=== PATIENT | male | born 1965 | race Caucasian/White ===

== ENCOUNTER → 2016-04-28 | Outpatient (CLI) | payer BC ==
--- NOTE | 2016-04-28 18:09 | PN ---
DATE OF SERVICE: 04/28/2016 A 50-year-old gentleman who has been followed in the sleep center for treatment of obstructive sleep apnea/hypopnea syndrome in extremely severe range. Apnea-hypopnea index 83.9, oxygen desaturation to 72%. He is on treatment with CPAP with a pressure of 8 cm of water. Last titration done in 2013. Since that time, patient's weight came up to 255 and then came down now to 247. I checked patient's CPAP unit. Usage is 29 out of 30 nights and 23 out of 30 nights for more than 4 hours. Average usage is 5.1 hours per night. Leak is 11 L/min, which is acceptable. Apnea-hypopnea index for the last month is 0.9, which is normal range. Patient denied any significant excessive daytime sleepiness. [place] Sleepiness Scale is 0. In 2014, patient went through maintenance of wakefulness test and passed this test. MEDICATIONS: 1. Atorvastatin. 2. Moexipril. PHYSICAL EXAM: GENERAL: A 50-year-old gentleman without distress. VITAL SIGNS: BP 150/92, HR 78, RR 16. Height 5 feet 10 inches. Weight 247. BMI 35.4. Neck 20 inches in circumference. Temp is 98.0. Oxygen saturation at room air 96%. OROPHARYNX: Low position of soft palate. Wide pillars. Significant restriction of nasal breathing bilaterally, probably nasal septum deviation. NECK: Supple. No JVD. Thyroid is not palpable. LUNGS: Clear to percussion and to auscultation. Good air exchange. No wheezing or rhonchi. HEART: S1, S2 regular. No murmurs, gallops or rubs. ABDOMEN: Soft and nontender. Bowel sounds are present. No organomegaly appreciated. EXTREMITIES: No clubbing or cyanosis. PANEL [employer] WORK[employer]: Awake, alert, and oriented x3. Cranial nerves 2 to 7 intact. There is no fasciculation or atrophy noted. No focal deficits observed. IMPRESSION: 1. Severe obstructive sleep apnea-hypopnea syndrome on control with continuous positive airway pressure at the pressure of 8 cm of water. Patient demonstrated acceptable compliance with treatment. 2. No excessive daytime sleepiness by results of [place] Sleepiness Scale. Previously, patient test maintenance of wakefulness test 2 years ago. 3. Significant restriction of nasal breathing secondary to allergy and nasal septum deviation. 4. Hypertension. 5. History of asthma. 6. History of allergies. 7. Hyperlipidemia. PLAN: 1. Continue treatment with CPAP at the same pressure, 8 cm of water every night for the whole night. 2. Losing weight. 3. Sleep hygiene with regular time in bed for at least 8 hours. 4. No driving if feeling any sleepiness. Patient is aware about civil and criminal liability for unsafe driving. Promised to follow recommendations. 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 He continues to increase his time of sleep during the night and increase subsequently time of usage of CPAP. 5. Patient was recommended to be evaluated by ear, nose and throat physician to check possibility to do some improvement of breathing to his nose. Thank you very much for asking me to follow up and participate in the management of your patient. Sincerely, Jg Sanders MD, PhD, FAASM. Diplomat of [place] [employer], Sleep Medicine Board by [employer] [facility]
== END | disposition home or self-care (01) ==
LOC: SLEEP 13:15
PROVIDERS: ATTEND Internal Medicine
DX: G47.33 Obstructive sleep apnea (adult) (pediatric) (principal); Z79.899 Other long term (current) drug therapy; Z91.09 Other allergy status, other than to drugs and biological substances; J34.2 Deviated nasal septum; I10 Essential (primary) hypertension; J45.909 Unspecified asthma, uncomplicated; E78.5 Hyperlipidemia, unspecified

== ENCOUNTER 2021-08-06 13:11 | Inpatient (IN) | payer BC ==
[2021-08-06] MEDS ORDERED: ONDANSETRON 4 MG/2 ML VIAL IVP STA (14:15)
[2021-08-06] MEDS ORDERED: HYDROmorphone 0.5 MG/0.5 ML SYRINGE IVP STA ×2 (14:15→16:46)
[2021-08-06] MEDS ORDERED: SODIUM CHLORIDE 0.9% 2,000 ML IV STA (14:15)
[2021-08-06 15:19] LABS: ALT 29 U/L (4-49); AST 26 U/L (17-59); African American GFR (CKD) >90 (>60 ml/min/1.73 sqM); Albumin 4.4 g/dL (3.5-5.0); Alkaline Phosphatase 77 U/L (38-126); Amylase 45 U/L (30-110); Anion Gap 10 mmol/L; Blood Urea Nitrogen 13 mg/dL (9-20); Calcium 9.3 mg/dL (8.4-10.2); Carbon Dioxide 25 mmol/L (22-30); Chloride 100 mmol/L (98-107); Glucose 114 mg/dL (74-99); Lipase 59 U/L (23-300); Non-African American GFR(CKD) >90 (>60 ml/min/1.73 sqM); Potassium 3.8 mmol/L (3.5-5.1); Sodium 135 mmol/L (137-145); Total Protein 7.3 g/dL (6.3-8.2)
[2021-08-06 15:23] LABS: Basophils % (A) 0 %; Eosinophils % (A) 0 %; HCT 45.7 % (39.0-53.0); HGB 15.1 gm/dL (13.0-17.5); Lymphocytes # (A) 1.2 k/uL (1.0-4.8); Lymphocytes % (A) 9 %; MCH 29.3 pg (25.0-35.0); MCV 88.8 fL (80.0-100.0); Mean Platelet Volume 8.5; Monocytes # (A) 0.7 k/uL (0-1.0); Monocytes % (A) 5 %; Neutrophils # (A) 11.2 k/uL (1.3-7.7); Neutrophils % (A) 84 %; Platelet Count 222 k/uL (150-450); RBC 5.14 m/uL (4.30-5.90); WBC 13.4 k/uL (3.8-10.6)
--- NOTE | 2021-08-06 15:29 | ED ---
Abdominal Pain HPI - General Chief Complaint: Abdominal Pain Stated Complaint: Abd Pain Time Seen by Provider: 08/06/21 13:41 Source: patient, EMS Mode of arrival: EMS Limitations: no limitations - History of Present Illness Initial Comments: Patient is a 56-year-old male who presents to the emergency department with a chief complaint of abdominal pain. Patient states the symptoms started at about 6 PM last night. Describes it as upper aching abdominal pain, constant in nature with radiation to the back. Patient also endorses nausea and vomiting, inability to tolerate food or liquid. Last bowel movement was yesterday which patient states was normal. Denies flatulence. Patient denies fever, chills, shortness of breath, chest pain, burning with urination, and blood in the urine. Denies history of abdominal surgery. States he drinks a few beers on the weekends. - Related Data Home Medications Medication Instructions Recorded Confirmed Atorvastatin [Lipitor] 20 mg PO DAILY@142908/06/21 08/06/21 Cetirizine HCl [Zyrtec] 10 mg PO DAILY@142908/06/21 08/06/21 Magnesium Oxide [Landa] 500 mg PO DAILY@142908/06/21 08/06/21 Moexipril HCl [Univasc] 30 mg PO DAILY@142908/06/21 08/06/21 hydroCHLOROthiazide 25 mg PO DAILY@142908/06/21 08/06/21 Allergies Allergy/AdvReac Type Severity Reaction Status Date / Time No Known Allergies Allergy Unverified 08/06/21 14:09 Review of Systems ROS Statement: Those systems with pertinent positive or pertinent negative responses have been documented in the HPI. ROS Other: All systems not noted in ROS Statement are negative. Past Medical History Past Medical History: Asthma, Hyperlipidemia, Hypertension, Sleep Apnea/CPAP/BIPAP History of Any Multi-Drug Resistant Organisms: None Reported Past Surgical History: No Surgical Hx Reported Past Psychological History: No Psychological Hx Reported Smoking Status: Former smoker Past Alcohol Use History: Rare Past Drug Use History: None Reported General Exam Limitations: no limitations General appearance: alert, in no apparent distress Head exam: Present: atraumatic, normocephalic, normal inspection Eye exam: Present: normal appearance, PERRL, EOMI. Absent: scleral icterus, conjunctival injection, periorbital swelling Respiratory exam: Present: normal lung sounds bilaterally. Absent: respiratory distress, wheezes, rales, rhonchi, stridor Cardiovascular Exam: Present: regular rate, normal rhythm, normal heart sounds, other (murmur ). Absent: rubs, gallop, clicks GI/Abdominal exam: Present: soft, distended (mild ), tenderness (epigastric and LUQ), normal bowel sounds, other (Negative Fierro sign). Absent: guarding, rebound, rigid Back exam: Present: normal inspection. Absent: paraspinal tenderness, vertebral tenderness Neurological exam: Present: alert, oriented X3, CN II-XII intact Psychiatric exam: Present: normal affect, normal mood Skin exam: Present: warm, dry, intact, normal color. Absent: rash Course Vital Signs 08/06/21 08/06/21 13:16 18:36 Temperature 97.6 F 99.1 F Pulse Rate 100 92 Respiratory 16 16 Rate Blood Pressure 167/97 140/79 O2 Sat by Pulse 95 95 Oximetry Medical Decision Making - Medical Decision Making This is a 56-year-old male who presents with upper abdominal pain, nausea, vomiting. Thorough history and examination were performed. The abdomen is mildly distended. Patient has tenderness in the epigastric and LUQ region. Denies history of pancreatitis. No right upper quadrant tenderness. Negative Fierro sign. Denies fever or chills. Normal bowel movement last night. With patient's symptoms and physical exam, I am concerned for pancreatitis and bowel obstruction. I will obtain laboratory studies and CT of the abdomen and pelvis with contrast. White count is elevated at 13.4. Lipase and amylase are within normal limits. Other laboratory studies are unremarkable. CT of the abdomen and pelvis with contrast shows a single gallstone at the gallbladder neck and concern for cholecystitis. Abdominal ultrasound was obtained which showed concern for cholecystitis. There is mild pericholecystic fluid around the gallbladder with no significant gallbladder wall thickening as well as a gallstone in the gallbladder neck without significant dilation of the intrahepatic bile ducts. Zosyn initiated. Patient made NPO. Case discussed with Dr. March. Patient will be admitted to his service for further evaluation and management. Pain and nausea are controlled. Maintenance fluids ordered. Patient is agreeable to admission. Dr. Edwards is my attending. - Lab Data Result diagrams: 08/06/21 14:54 08/06/21 14:54 Lab Results 08/06/21 08/06/21 08/06/21 Range/Units 14:30 14:54 14:54 WBC 13.4 H (3.8-10.6) k/uL RBC 5.14 (4.30-5.90) m/uL Hgb 15.1 (13.0-17.5) gm/dL Hct 45.7 (39.0-53.0) % MCV 88.8 (80.0-100.0) fL MCH 29.3 (25.0-35.0) pg MCHC 33.0 (31.0-37.0) g/dL RDW 13.0 (11.5-15.5) % Plt Count 222 (150-450) k/uL MPV 8.5 Neutrophils % 84 % Lymphocytes % 9 % Monocytes % 5 % Eosinophils % 0 % Basophils % 0 % Neutrophils # 11.2 H (1.3-7.7) k/uL Lymphocytes # 1.2 (1.0-4.8) k/uL Monocytes # 0.7 (0-1.0) k/uL Eosinophils # 0.0 (0-0.7) k/uL Basophils # 0.0 (0-0.2) k/uL PT (9.0-12.0) sec INR (<1.2) APTT (22.0-30.0) sec Sodium (137-145) mmol/L Potassium (3.5-5.1) mmol/L Chloride (98-107) mmol/L Carbon Dioxide (22-30) mmol/L Anion Gap mmol/L BUN (9-20) mg/dL Creatinine (0.66-1.25) mg/dL Est GFR (CKD-EPI)AfAm (>60 ml/min/1.73 sqM) Est GFR (CKD-EPI)NonAf (>60 ml/min/1.73 sqM) Glucose (74-99) mg/dL Calcium (8.4-10.2) mg/dL Total Bilirubin (0.2-1.3) mg/dL AST (17-59) U/L ALT (4-49) U/L Alkaline Phosphatase (38-126) U/L Total Protein (6.3-8.2) g/dL Albumin (3.5-5.0) g/dL Amylase (30-110) U/L Lipase (23-300) U/L Urine Color Light Yellow Urine Appearance Clear (Clear) Urine pH 6.0 (5.0-8.0) Ur Specific Himrod 1.007 (1.001-1.035) Urine Protein Negative (Negative) Urine Glucose (UA) Negative (Negative) Urine Ketones 1+ H (Negative) Urine Blood Negative (Negative) Urine Nitrite Negative (Negative) Urine Bilirubin Negative (Negative) Urine Urobilinogen <2.0 (<2.0) mg/dL Ur Leukocyte Esterase Negative (Negative) Blood Type Recheck No Previous Record Bld Type Recheck Status CABO Indicated Spec Expiration Date 08/09/2021 - 232908/06/21 08/06/21 Range/Units 14:54 18:11 WBC (3.8-10.6) k/uL RBC (4.30-5.90) m/uL Hgb (13.0-17.5) gm/dL Hct (39.0-53.0) % MCV (80.0-100.0) fL MCH (25.0-35.0) pg MCHC (31.0-37.0) g/dL RDW (11.5-15.5) % Plt Count (150-450) k/uL MPV Neutrophils % % Lymphocytes % % Monocytes % % Eosinophils % % Basophils % % Neutrophils # (1.3-7.7) k/uL Lymphocytes # (1.0-4.8) k/uL Monocytes # (0-1.0) k/uL Eosinophils # (0-0.7) k/uL Basophils # (0-0.2) k/uL PT 11.3 (9.0-12.0) sec INR 1.1 (<1.2) APTT 23.5 (22.0-30.0) sec Sodium 135 L (137-145) mmol/L Potassium 3.8 (3.5-5.1) mmol/L Chloride 100 (98-107) mmol/L Carbon Dioxide 25 (22-30) mmol/L Anion Gap 10 mmol/L BUN 13 (9-20) mg/dL Creatinine 0.86 (0.66-1.25) mg/dL Est GFR (CKD-EPI)AfAm >90 (>60 ml/min/1.73 sqM) Est GFR (CKD-EPI)NonAf >90 (>60 ml/min/1.73 sqM) Glucose 114 H (74-99) mg/dL Calcium 9.3 (8.4-10.2) mg/dL Total Bilirubin 1.0 (0.2-1.3) mg/dL AST 26 (17-59) U/L ALT 29 (4-49) U/L Alkaline Phosphatase 77 (38-126) U/L Total Protein 7.3 (6.3-8.2) g/dL Albumin 4.4 (3.5-5.0) g/dL Amylase 45 (30-110) U/L Lipase 59 (23-300) U/L Urine Color Urine Appearance (Clear) Urine pH (5.0-8.0) Ur Specific Himrod (1.001-1.035) Urine Protein (Negative) Urine Glucose (UA) (Negative) Urine Ketones (Negative) Urine Blood (Negative) Urine Nitrite (Negative) Urine Bilirubin (Negative) Urine Urobilinogen (<2.0) mg/dL Ur Leukocyte Esterase (Negative) Blood Type Recheck Bld Type Recheck Status Spec Expiration Date - EKG Data EKG Comments: EKG taken at 13:37 Sinus rhythm, no ST or T-wave changes Ventricular rate 91 IN interval 168 QRS duration 77 QTC 394 Disposition Clinical Impression: Cholecystitis Disposition: ADMITTED IP TO THIS HOSP Condition: Fair Referrals: Camacho Neves MD [Primary Care Provider] - 1-2 days Decision Time: 19:26
[2021-08-06 16:52] LABS: Appearance,Urine Clear (Clear); Bilirubin,Urine Negative (Negative); Blood,Urine Negative (Negative); Color,Urine Light Yellow; Glucose,Urine (UA) Negative (Negative); Ketones,Urine 1+ (Negative); Leukocyte Esterase,Urine Negative (Negative); Nitrite,Urine Negative (Negative); Protein,Urine Negative (Negative); Specific Gravity,Urine 1.007 (1.001-1.035); Urobilinogen,Urine <2.0 mg/dL (<2.0)
--- NOTE | 2021-08-06 17:01 | CT ---
EXAMINATION TYPE: CT abdomen pelvis w con DATE OF EXAM: 08/06/2021 COMPARISON: None HISTORY: Abdominal pain CT DLP: 1886.2 mGycm Automated exposure control for dose reduction was used. CONTRAST: Performed with IV Contrast, patient injected with 100 mL of Isovue 300. Images obtained from the diaphragm to the floor of the pelvis with IV contrast. The lung bases are clear. No pleural effusion. Heart size is normal. No pericardial effusion. Liver spleen and stomach pancreas appear intact. The bile ducts are not dilated. There is a single 7 mm calcified gallstone at the gallbladder neck. No gallbladder wall thickening. Gallbladder is large and measures 4.7 cm in diameter. There is no adrenal mass. Kidneys show normal size and contour. There is 4 mm calculus lower pole lef t kidney. No hydronephrosis. Ureters are not dilated. Delayed images show normal renal excretion. Jyothi endix is posterior and appears normal. The bladder distends smoothly. No inguinal hernia. No free flu id in the pelvis. There is no mesenteric edema. No ascites or free air. No bowel obstruction. There are sigmoid diverti cula. No diverticulitis. The lumbar vertebra show normal alignment. No compression fracture. There is vacuum disc at L5-S1 wit h disc space narrowing. Posterior elements are intact. The bony pelvis is intact. Hip joints are inta ct. IMPRESSION: There is mild colonic diverticulosis without diverticulitis. Normal appendix. Nonobstructing left keven al calculus. Single gallstone at the gallbladder neck. Gallbladder is large and the possibility of cystic duct obstruction cholecystitis should be considere d.
--- NOTE | 2021-08-06 18:09 | US ---
EXAMINATION TYPE: US abdomen limited DATE OF EXAM: 08/06/2021 COMPARISON: NONE CLINICAL HISTORY: upper abdominal pain, concern for yoandy on CT. pain nausea and vomiting. Exam limi tations due to body habitus and bowel gas. EXAM MEASUREMENTS: Liver Length: 16.4 cm Gallbladder Wall: .3 cm CBD: .7 cm Right Kidney: 12.2 x 5.9 x 4.7 cm Pancreas: Obscured by bowel gas Liver: Increased attenuation Gallbladder: Neck was limited low level echoes seen. Small amount of pericholecystic fluid visualize d. Evidence for sonographic Fierro's sign : no CBD: upper limits Right Kidney: No hydronephrosis or masses seen IMPRESSION: Common bile duct is 7 mm. No significant dilation of the intrahepatic bile ducts. Gallbladder is larg e and there is tiny amount of fluid around the gallbladder. Cholecystitis should be considered. Exam is limited due to patient's size. No significant gallbladder wall thickening. The CT scan today shows a stone at the gallbladder neck and this area is not well evaluated.
[2021-08-06] MEDS ORDERED: PIPERACILLIN-TAZOBACTAM 3.375 GM in SODIUM CHLORIDE 0.9% 100 ML IVPB STA (18:31)
[2021-08-06 18:37] LABS: INR 1.1 (<1.2); Partial Thromboplastin Time 23.5 sec (22.0-30.0); Prothrombin Time 11.3 sec (9.0-12.0)
[2021-08-06] MEDS ORDERED: NALOXONE 0.4 MG/ML 1 ML VIAL IV PRN (19:52)
[2021-08-06] MEDS: HYDROmorphone 0.5 MG/0.5 ML SYRINGE IVP PRN (21:50)
[2021-08-06] MEDS: SODIUM CHLORIDE 0.9% 1,000 ML IV SCH (21:52)
[2021-08-07] MEDS: HYDROmorphone 0.5 MG/0.5 ML SYRINGE IVP PRN ×4 (02:08→17:30)
[2021-08-07] MEDS: SODIUM CHLORIDE 0.9% 1,000 ML IV SCH ×4 (07:50→17:37)
[2021-08-07] MEDS: PIPERACILLIN-TAZOBACTAM 3.375 GM in SODIUM CHLORIDE 0.9% 100 ML IVPB SCH ×2 (07:52→16:55)
--- NOTE | 2021-08-07 09:25 | P.GSCN ---
History of Present Illness Consult date: 08/07/21 History of present illness: 56-year-old male who presents to the emergency department with complaints of abdominal pain. The abdominal pain started evening and is mostly in the epigastrium. He states he had a previous episode of this in February it passed on its own. He states he initially assumed that this was heartburn and there has been no relief since that time. Denies any nausea or vomiting. Denies any change in bowel function. On workup, patient was found to have leukocytosis. He was also sent for CT of the abdomen along with ultrasound of the abdomen by the emergency department. This did reveal her pericholecystic fluid and stone in the gallbladder neck. This is concerning for cholecystitis. He has been started on IV antibiotics and states he has had some mild relief. He denies any previous abdominal surgery. He denies any anticoagulation. Review of Systems All systems: negative Past Medical History Past Medical History: Asthma, Hyperlipidemia, Hypertension, Sleep Apnea/CPAP/BIPAP History of Any Multi-Drug Resistant Organisms: None Reported Past Surgical History: No Surgical Hx Reported Past Psychological History: No Psychological Hx Reported Smoking Status: Former smoker Past Alcohol Use History: Rare Past Drug Use History: None Reported Medications and Allergies Home Medications Medication Instructions Recorded Confirmed Type Atorvastatin [Lipitor] 20 mg PO DAILY@142908/06/21 08/06/21 History Cetirizine HCl [Zyrtec] 10 mg PO DAILY@142908/06/21 08/06/21 History Magnesium Oxide [Landa] 500 mg PO DAILY@142908/06/21 08/06/21 History Moexipril HCl [Univasc] 30 mg PO DAILY@142908/06/21 08/06/21 History hydroCHLOROthiazide 25 mg PO DAILY@142908/06/21 08/06/21 History Allergies Allergy/AdvReac Type Severity Reaction Status Date / Time No Known Allergies Allergy Unverified 08/06/21 14:09 Surgical - Exam Osteopathic Statement: *. No significant issues noted on an osteopathic structural exam other than those noted in the History and Physical/Consult. Vital Signs Temp Pulse Resp BP Pulse Ox 97.6 F 100 16 167/97 95 08/06/21 13:16 08/06/21 13:16 08/06/21 13:16 08/06/21 13:16 08/06/21 13:16 - General well nourished, no distress - Eyes PERRL - ENT normal mucosa - Neck trachea midline - Respiratory normal respiratory effort - Abdomen Soft, tender to palpation in the epigastrium, nondistended, no rebound, no guarding - Psychiatric oriented to time, oriented to person, oriented to place Results - Labs 08/06/21 14:54 08/06/21 14:54 Abnormal Lab Results - Last 24 Hours (Table) 08/06/21 08/06/21 08/06/21 Range/Units 14:54 14:54 14:54 WBC 13.4 H (3.8-10.6) k/uL Neutrophils # 11.2 H (1.3-7.7) k/uL Sodium 135 L (137-145) mmol/L Glucose 114 H (74-99) mg/dL Urine Ketones 1+ H (Negative) Diabetes panel 08/06/21 Range/Units 14:54 Sodium 135 L (137-145) mmol/L Potassium 3.8 (3.5-5.1) mmol/L Chloride 100 (98-107) mmol/L Carbon Dioxide 25 (22-30) mmol/L BUN 13 (9-20) mg/dL Creatinine 0.86 (0.66-1.25) mg/dL Glucose 114 H (74-99) mg/dL Calcium 9.3 (8.4-10.2) mg/dL AST 26 (17-59) U/L ALT 29 (4-49) U/L Alkaline Phosphatase 77 (38-126) U/L Total Protein 7.3 (6.3-8.2) g/dL Albumin 4.4 (3.5-5.0) g/dL Calcium panel 08/06/21 Range/Units 14:54 Calcium 9.3 (8.4-10.2) mg/dL Albumin 4.4 (3.5-5.0) g/dL Pituitary panel 08/06/21 Range/Units 14:54 Sodium 135 L (137-145) mmol/L Potassium 3.8 (3.5-5.1) mmol/L Chloride 100 (98-107) mmol/L Carbon Dioxide 25 (22-30) mmol/L BUN 13 (9-20) mg/dL Creatinine 0.86 (0.66-1.25) mg/dL Glucose 114 H (74-99) mg/dL Calcium 9.3 (8.4-10.2) mg/dL Adrenal panel 08/06/21 Range/Units 14:54 Sodium 135 L (137-145) mmol/L Potassium 3.8 (3.5-5.1) mmol/L Chloride 100 (98-107) mmol/L Carbon Dioxide 25 (22-30) mmol/L BUN 13 (9-20) mg/dL Creatinine 0.86 (0.66-1.25) mg/dL Glucose 114 H (74-99) mg/dL Calcium 9.3 (8.4-10.2) mg/dL Total Bilirubin 1.0 (0.2-1.3) mg/dL AST 26 (17-59) U/L ALT 29 (4-49) U/L Alkaline Phosphatase 77 (38-126) U/L Total Protein 7.3 (6.3-8.2) g/dL Albumin 4.4 (3.5-5.0) g/dL Assessment and Plan Plan: 56-year-old male with concern for cholecystitis. Patient is to be kept nothing by mouth and continue with IV antibiotics. Patient is to continue with IV antib iotics and plan is for surgical intervention with robotic-assisted laparoscopic cholecystectomy. Patient states that his primary physician is Dr. Neves. He has been consulted for medical management.
[2021-08-07] MEDS: ATORVASTATIN 20 MG TAB PO SCH (16:56)
[2021-08-07] MEDS: hydroCHLOROthiazide 25 MG TAB PO SCH (16:56)
[2021-08-07] MEDS: lisinopriL 20 MG TAB PO SCH (16:56)
[2021-08-07] MEDS: MAGNESIUM OXIDE 400 MG TAB PO SCH (16:56)
[2021-08-07] MEDS: HEPARIN SODIUM,PORCINE/PF 5,000 UNIT/0.5 ML SYRINGE SQ SCH (16:57)
[2021-08-07] MEDS: ONDANSETRON 4 MG/2 ML VIAL IVP PRN (17:37)
[2021-08-08] MEDS: PIPERACILLIN-TAZOBACTAM 3.375 GM in SODIUM CHLORIDE 0.9% 100 ML IVPB SCH ×3 (01:18→15:03)
[2021-08-08] MEDS: HEPARIN SODIUM,PORCINE/PF 5,000 UNIT/0.5 ML SYRINGE SQ SCH ×3 (01:18→15:03)
[2021-08-08] MEDS: HYDROmorphone 0.5 MG/0.5 ML SYRINGE IVP PRN ×3 (01:25→10:15)
[2021-08-08] MEDS: SODIUM CHLORIDE 0.9% 1,000 ML IV SCH ×4 (05:48→19:39)
[2021-08-08] MEDS ORDERED: SCOPOLAMINE 1 MG/72 HR PATCH TRANSDERM ONE ×2 (08:07→09:59)
[2021-08-08] MEDS: ONDANSETRON 4 MG/2 ML VIAL IVP PRN (08:07)
[2021-08-08] MEDS ORDERED: DEXAMETHASONE SOD PHOSPHATE 4 MG/ML 1 ML VIAL IV ONE ×2 (08:07→09:59)
[2021-08-08] MEDS ORDERED: SUCCINYLCHOLINE CHLORIDE VIAL 200 MG/10 ML VIAL IV ONE (08:09)
[2021-08-08] MEDS ORDERED: GLYCOPYRROLATE 0.2 MG/ML 2 ML VIAL ONE (08:09)
[2021-08-08] MEDS ORDERED: MIDAZOLAM 2 MG/2 ML VIAL ONE (08:09)
[2021-08-08] MEDS ORDERED: PROPOFOL 10 MG/ML 20 ML VIAL IV ONE (08:09)
[2021-08-08] MEDS ORDERED: NEOSTIGMINE 1 MG/ML 10 ML VIAL ONE (08:09)
[2021-08-08] MEDS ORDERED: fentaNYL (PF) 50 MCG/ML 2 ML AMP ONE (08:09)
[2021-08-08] MEDS ORDERED: KETOROLAC 15 MG/ML 1 ML VIAL ONE (08:09)
[2021-08-08] MEDS ORDERED: PHENYLEPHRINE-0.9% NACL SYG 1,000 MCG/10 ML SYRINGE ONE (08:09)
[2021-08-08] MEDS ORDERED: ROCURONIUM 10 MG/ML (5 ML VIAL) IV ONE (08:09)
[2021-08-08] MEDS ORDERED: IV FLUID CONTINUATION 1,000 ML IV ONE (08:14)
[2021-08-08] MEDS ORDERED: BUPIVACAIN-EPI 0.25%-1:200,000 30 ML VIAL SQ ONE ×2 (08:38)
[2021-08-08] MEDS ORDERED: LACTATED RINGERS 1,000 ML IV ONE (08:38)
[2021-08-08] MEDS ORDERED: HYDROmorphone 1 MG/ML 1 ML SYRINGE IVP PRN (09:48)
--- NOTE | 2021-08-08 09:56 | P.OP ---
Date of Procedure: 08/08/21 Preoperative Diagnosis: Acute cholecystitis Postoperative Diagnosis: Acute cholecystitis Procedure(s) Performed: Robotic cholecystectomy with DEBORAH drain placement Anesthesia: SHERLEY Surgeon: Hanh March Pathology: other (Gallbladder and contents) Condition: stable Disposition: floor Indications for Procedure: 56-year-old male presented to the emergency department with complaints of abdominal pain. On workup, he was found to have acute cholecystitis. Secondary to this, plan is for cholecystectomy. Risks, benefits and alternatives were provided to the patient. He did provide consent prior to the procedure. Operative Findings: Significantly inflamed and distended intrahepatic gallbladder Umbilical hernia Description of Procedure: The patient was brought to the operating suite and placed in supine position on the operating table. Sedation was provided by anesthesia and the patient underwent endotracheal intubation. He was then prepped and draped in regular sterile fashion. Patient is noted to have a small umbilical hernia. Therefore, decision was made to make an incision at the umbilicus and trocar was entered through the hernia defect. Pneumoperitoneum was achieved. Patient was then placed in appropriate position and 2 additional 8 mm trochars were placed in the right upper quadrant and one was placed in the left mid abdomen. The robot was then docked appropriately. On grasping the gallbladder, it was noted to be significantly inflamed and distended and difficult to grasp. Secondary to this, decompression of the gallbladder was performed by introducing a needle and suctioning out approximately 90 mL of dark bilious fluid. The gallbladder was then easily grasped and retracted. Significant adherent peritoneal tissue was noted. Dissection was carefully performed to visualize the cystic duct and cystic artery. The critical view was obtained. The cystic duct was skeletonized and 2 clips were placed proximally and one was placed distally and the cystic duct was ligated. Similarly, the cystic artery was skeletonized and 2 clips were placed proximally, one was placed distally and the cystic artery was ligated. Cautery was then used to dissect the gallbladder from the gallbladder fossa on the liver bed. At this point, it was noted that the gallbladder was somewhat intrahepatic and careful cautery dissection was used to dissect the gallbladder further from the liver bed. At this point, the gallbladder was then removed from the abdominal cavity using a Endo Catch bag. Copious muss irrigation was placed in the right upper quadrant and suctioned. Due to the significant inflammation, DEBORAH drain was placed and brought out through the right lateral 8 mm trocar site. This was secured using a 2-0 nylon. The umbilical trocar site was then examined and the hernia defect at the trocar was placed through was closed with interrupted 0 Vicryl suture. Pneumoperitoneum was released. All incisions were closed with 4-0 Vicryl subcuticular suture. Sterile dressing was applied. The patient was awakened in the operating suite and taken to postanesthesia care unit in stable condition. Sponge and instrument count were correct 2.
[2021-08-08] MEDS ORDERED: LIDOCAINE 1% (10MG/ML) FOR IV START INTRADERMA PRN (09:59)
[2021-08-08] MEDS ORDERED: ONDANSETRON 4 MG/2 ML VIAL IVP ONE (09:59)
[2021-08-08] MEDS: LACTATED RINGERS 1,000 ML IV SCH (10:39)
[2021-08-08] MEDS: KETOROLAC 15 MG/ML 1 ML VIAL IVP SCH ×2 (11:08→17:29)
[2021-08-08] MEDS ORDERED: KETOROLAC 15 MG/ML 1 ML VIAL IVP SCH (12:00)
--- NOTE | 2021-08-08 13:41 | P.HPIM ---
History of Present Illness H&P Date: 08/08/21 Chief Complaint: Abdominal pain This is a 56-year-old male well-known to the practice who presented to the emergency room with abdominal pain. The abdominal pain primarily in the epigastrium. Patient states that this is been happening off and on since last February. He assumed patient that this is merely heartburn. Denies nausea denies vomiting denies change in bowel habits. In the emergency room the labs demonstrated elevated white count. A CT of the abdomen revealed Arnold cholecystic fluid and a stone in the gallbladder neck, consultation with Hanh March Gen. surgery. Patient subsequently underwent laparoscopic cholecystectomy this morning Review of Systems Constitutional: Reports as per HPI Ears, nose, mouth and throat: Reports as per HPI Cardiovascular: Reports as per HPI Respiratory: Reports as per HPI Gastrointestinal: Reports abdominal pain, Reports belching, Reports bloating, Reports dyspepsia, Reports excessive gas Genitourinary: Reports as per HPI Integumentary: Reports as per HPI Neurological: Reports as per HPI Psychiatric: Reports as per HPI Endocrine: Reports as per HPI Hematologic/Lymphatic: Reports as per HPI Allergic/Immunologic: Reports as per HPI Past Medical History Past Medical History: Asthma, Hyperlipidemia, Hypertension, Sleep Apnea/CPAP/BIPAP History of Any Multi-Drug Resistant Organisms: None Reported Past Surgical History: No Surgical Hx Reported Past Anesthesia/Blood Transfusion Reactions: No Reported Reaction Past Psychological History: No Psychological Hx Reported Smoking Status: Former smoker Past Alcohol Use History: Rare Past Drug Use History: None Reported - Past Family History Father Family Medical History: No Reported History Medications and Allergies Home Medications Medication Instructions Recorded Confirmed Type Atorvastatin [Lipitor] 20 mg PO DAILY@142908/06/21 08/06/21 History Cetirizine HCl [Zyrtec] 10 mg PO DAILY@142908/06/21 08/06/21 History Magnesium Oxide [Landa] 500 mg PO DAILY@142908/06/21 08/06/21 History Moexipril HCl [Univasc] 30 mg PO DAILY@142908/06/21 08/06/21 History hydroCHLOROthiazide 25 mg PO DAILY@142908/06/21 08/06/21 History Allergies Allergy/AdvReac Type Severity Reaction Status Date / Time No Known Allergies Allergy Unverified 08/06/21 14:09 Physical Exam Osteopathic Statement: *. No significant issues noted on an osteopathic structural exam other than those noted in the History and Physical/Consult. Vitals: Vital Signs Temp Pulse Pulse Resp BP BP Pulse Ox 08/08/21 12:37 71 126/79 97 08/08/21 12:22 80 123/63 96 08/08/21 12:07 70 103/66 93 L 08/08/21 11:52 71 106/70 94 L 08/08/21 11:37 67 105/68 91 L 08/08/21 11:22 68 105/67 96 08/08/21 11:07 72 110/71 96 08/08/21 10:52 98.4 F 72 17 108/68 95 08/08/21 10:30 74 16 117/67 99 08/08/21 10:15 72 16 125/68 97 08/08/21 10:00 97 F L 80 16 137/76 100 08/08/21 09:47 97 F L 89 17 137/79 96 08/08/21 07:33 98.1 F 82 17 125/81 93 L 08/08/21 02:00 98.7 F 76 18 117/70 95 08/07/21 19:45 18 08/07/21 17:25 97.9 F 93 18 132/83 93 L 08/07/21 17:05 98.1 F 74 18 129/89 99 Intake and Output 08/07/21 08/08/21 08/08/21 22:59 06:59 14:59 Intake Total 1100 Output Total 9 Balance 1091 Intake: IV 1100 Output: Estimated Blood Loss 9 Other: Voiding Method Toilet # Voids 3 Weight 117.027 kg 117.027 kg General: [Patient awake, alert and oriented times 3. Patient in no acute distress.] HEENT: [PERRL. EOMI. No pharyngeal erythema or exudate.] Neck: [No adenopathy.] Cardiac: [Heart regular in rate and rhythm. No S3. No S4. No clicks, rubs. No murmur.] Lungs: [Clear to auscultation bilaterally.] Abdomen: [No mass. No organomegaly. Bowel sounds presnt and normoactive in all 4 quadrants.] Multiple abdominal puncture wounds consistent with laparoscopic cholecystectomy Extremes: [No edema no cyanosis no claudication normal pulses] : Normal male genitalia Musculoskeletal: [No joint erythema, edema or tenderness.] Skin: [No rash.] Neurologic: [No lateralizing deficits. CN II - XII grossly intact.] Lymphatic: [No adenopathy.] Results CBC & Chem 7: 08/06/21 14:54 08/06/21 14:54 Thrombosis Risk Factor Assmnt - Choose All That Apply Each Factor Represents 1 point: Age 41-60 years Thrombosis Risk Factor Assessment Total Risk Factor Score: 1 Thrombosis Risk Factor Assessment Level: Low Risk Assessment and Plan (1) Cholelithiasis Current Visit: Yes Status: Acute Code(s): K80.20 - CALCULUS OF GALLBLADDER W/O CHOLECYSTITIS W/O OBSTRUCTION SNOMED Code(s): 371964737 (2) Cholecystitis Current Visit: Yes Status: Acute Code(s): K81.9 - CHOLECYSTITIS, UNSPECIFIED SNOMED Code(s): 43473580 Plan: Patient underwent laparoscopic cholecystectomy per Dr. Hanh Milligan surgery Otherwise patient doing very well we'll reevaluate in the morning Time with Patient: Greater than 30
[2021-08-08] MEDS: lisinopriL 20 MG TAB PO SCH (13:50)
[2021-08-08] MEDS: MAGNESIUM OXIDE 400 MG TAB PO SCH (13:50)
[2021-08-08] MEDS: hydroCHLOROthiazide 25 MG TAB PO SCH (13:50)
[2021-08-08] MEDS: ATORVASTATIN 20 MG TAB PO SCH (13:50)
[2021-08-08] MEDS: HYDROcodone/APAP 5-325MG 1 EACH TAB PO PRN (19:39)
[2021-08-09] MEDS: KETOROLAC 15 MG/ML 1 ML VIAL IVP SCH ×4 (00:01→17:37)
[2021-08-09] MEDS: PIPERACILLIN-TAZOBACTAM 3.375 GM in SODIUM CHLORIDE 0.9% 100 ML IVPB SCH ×3 (00:02→16:33)
[2021-08-09] MEDS: HEPARIN SODIUM,PORCINE/PF 5,000 UNIT/0.5 ML SYRINGE SQ SCH ×3 (00:02→16:33)
[2021-08-09] MEDS: SODIUM CHLORIDE 0.9% 1,000 ML IV SCH ×2 (05:58→23:56)
[2021-08-09] MEDS: LACTATED RINGERS 1,000 ML IV SCH (06:39)
[2021-08-09] MEDS ORDERED: METOCLOPRAMIDE 5 MG/ML 2 ML VIAL IVP PRN (07:00)
--- NOTE | 2021-08-09 09:31 | P.PN ---
Subjective Progress Note Date: 08/09/21 Patient seen and examined at bedside. States she is feeling much better. States she has some pain at the DEBORAH drain site, otherwise significant pain. Denies nausea or vomiting with clear liquid diet. States he is beginning to have flatus and has started increasing activity. Objective - Vital Signs Vital signs: Vital Signs Temp 97.6 F 08/09/21 07:26 Pulse 71 08/09/21 07:26 Resp 20 08/09/21 07:26 BP 112/68 08/09/21 07:26 Pulse Ox 96 08/09/21 07:26 FiO2 Intake & Output 08/08/21 08/09/21 08/09/21 18:59 06:59 18:59 Intake Total 1340 Output Total 619 18 Balance 721 -18 Weight 117.027 kg Intake: IV 1100 Oral 240 Output: Drainage 10 18 Right Abdomen 10 18 Urine 600 Estimated Blood Loss 9 Other: Voiding Method Toilet Toilet Urinal # Voids 3 3 - Constitutional General appearance: Present: cooperative - Gastrointestinal Gastrointestinal Comment(s): Soft, appropriate tenderness, nondistended, no rebound, no guarding, DEBORAH drain in site with serosanguineous output - Psychiatric Psychiatric: Present: A&O x's 3 - Labs CBC & Chem 7: 08/06/21 14:54 08/06/21 14:54 Assessment and Plan Plan: Postoperative day #1, robotic cholecystectomy - Awaiting a.m. labs - Advance to low-fat diet - Continue IV antibiotics - Continue to increase activity - Continue DEBORAH drain for today - Likely discharge in 24 hours
[2021-08-09] MEDS ORDERED: HYDROmorphone 0.5 MG/0.5 ML SYRINGE IVP PRN (09:32)
[2021-08-09 09:58] LABS: Basophils % (A) 0 %; Eosinophils # (A) 0.1 k/uL (0-0.7); Eosinophils % (A) 2 %; HCT 37.7 % (39.0-53.0); HGB 12.3 gm/dL (13.0-17.5); Lymphocytes # (A) 1.3 k/uL (1.0-4.8); Lymphocytes % (A) 22 %; MCH 29.8 pg (25.0-35.0); MCHC 32.6 g/dL (31.0-37.0); MCV 91.5 fL (80.0-100.0); Mean Platelet Volume 8.7; Monocytes # (A) 0.4 k/uL (0-1.0); Monocytes % (A) 6 %; Neutrophils # (A) 3.9 k/uL (1.3-7.7); Neutrophils % (A) 67 %; Platelet Count 163 k/uL (150-450); RBC 4.11 m/uL (4.30-5.90); RDW 12.4 % (11.5-15.5); WBC 5.8 k/uL (3.8-10.6)
[2021-08-09 10:07] LABS: ALT 67 U/L (4-49); AST 55 U/L (17-59); African American GFR (CKD) >90 (>60 ml/min/1.73 sqM); Albumin 3.1 g/dL (3.5-5.0); Albumin/Globulin Ratio 1.2; Alkaline Phosphatase 62 U/L (38-126); Anion Gap 7 mmol/L; Blood Urea Nitrogen 11 mg/dL (9-20); Calcium 7.9 mg/dL (8.4-10.2); Carbon Dioxide 25 mmol/L (22-30); Chloride 103 mmol/L (98-107); Globulin 2.6 g/dL; Glucose 120 mg/dL (74-99); Non-African American GFR(CKD) >90 (>60 ml/min/1.73 sqM); Potassium 3.5 mmol/L (3.5-5.1); Sodium 135 mmol/L (137-145); Total Bilirubin 0.5 mg/dL (0.2-1.3); Total Protein 5.7 g/dL (6.3-8.2)
[2021-08-09] MEDS: HYDROcodone/APAP 5-325MG 1 EACH TAB PO PRN ×2 (10:58→16:33)
[2021-08-09] MEDS: lisinopriL 20 MG TAB PO SCH (14:35)
[2021-08-09] MEDS: ATORVASTATIN 20 MG TAB PO SCH (14:35)
[2021-08-09] MEDS: MAGNESIUM OXIDE 400 MG TAB PO SCH (14:35)
[2021-08-09] MEDS: hydroCHLOROthiazide 25 MG TAB PO SCH (14:35)
[2021-08-10] MEDS: PIPERACILLIN-TAZOBACTAM 3.375 GM in SODIUM CHLORIDE 0.9% 100 ML IVPB SCH ×2 (00:24→08:09)
[2021-08-10] MEDS: KETOROLAC 15 MG/ML 1 ML VIAL IVP SCH ×2 (00:24→05:35)
[2021-08-10] MEDS: HEPARIN SODIUM,PORCINE/PF 5,000 UNIT/0.5 ML SYRINGE SQ SCH ×2 (00:24→08:09)
[2021-08-10 08:15] VITALS: BP 141/81; PULSE 108; RESP 19; TEMP 97.8
[2021-08-10] MEDS ORDERED: PANTOPRAZOLE 40 MG/10 ML VIAL IVP SCH (09:00)
--- NOTE | 2021-08-10 10:01 | P.DS ---
Providers Date of admission: 08/10/21 08:57 Attending physician: Hanh March DO Consults: 08/06/21 19:53 Consult Physician Routine Consulting Provider: Camacho Neves Consult Reason/Comments: Med Mgmt, pt known to you Do you want consulting provider notified?: Yes Primary care physician: Camacho [facility] Course: 56-year-old male presented with complaints of epigastric and right upper liz drant pain and was found acute cholecystitis. Secondary and IV antibiotics and take to the operating room for robotic cholecystectomy. Postoperatively, DEBORAH drain was placed and patient was in the medical surgical floor. He improved throughout his admission. Leukocytosis resolved. Pain was well-controlled and patient states that he is feeling much better. Prior to discharge, DEBORAH to be removed. Recommended low-fat diet. No lifting greater than 5 pounds. All this was discussed with the patient. He is requesting discharge. Procedures: Robotic cholecystectomy Patient Condition at Discharge: Fair Plan - Discharge Summary Discharge Rx Participant: No New Discharge Prescriptions: New HYDROcodone/APAP 5-325MG [Dayhoit 5-325] 1 each PO Q6HR PRN #12 tab PRN Reason: Moderate Pain Continue Cetirizine HCl [Zyrtec] 10 mg PO DAILY@1430 Moexipril HCl [Univasc] 30 mg PO DAILY@1430 hydroCHLOROthiazide 25 mg PO DAILY@1430 Atorvastatin [Lipitor] 20 mg PO DAILY@1430 Magnesium Oxide [Landa] 500 mg PO DAILY@1430 Discharge Medication List Atorvastatin [Lipitor] 20 mg PO DAILY@142908/06/21 [History] Cetirizine HCl [Zyrtec] 10 mg PO DAILY@142908/06/21 [History] Magnesium Oxide [Landa] 500 mg PO DAILY@142908/06/21 [History] Moexipril HCl [Univasc] 30 mg PO DAILY@142908/06/21 [History] hydroCHLOROthiazide 25 mg PO DAILY@142908/06/21 [History] HYDROcodone/APAP 5-325MG [Dayhoit 5-325] 1 each PO Q6HR PRN #12 tab 08/10/21 [Rx] Follow up Appointment(s)/Referral(s): Camacho Neves MD [Primary Care Provider] - 08/13/21 9:00 am (He is meeting with . ) Hanh March DO [Doctor of Osteopathic Medicine] - 2 Weeks Patient Instructions/Handouts: Laparoscopic Cholecystectomy (DC) Activity/Diet/Wound Care/Special Instructions: No lifting greater than 5 pounds Benito a low-fat diet Take pain medication as needed Discharge Disposition: HOME SELF-CARE
== END 2021-08-10 12:24 | disposition home or self-care (01) | DRG 419 ==
LOC: EC 13:11 → 6NMEDSUR 19:53 → 4SSUR 08-07 15:07 → OBSVTOIN 08-10 08:57
PROVIDERS: ADMIT Surgery; ATTEND Surgery
PROC: 8E0W4CZ Robotic Assisted Procedure of Trunk Region, Percutaneous Endoscopic Approach (ICD-10-PCS; principal; 2021-08-08 08:00)
PROC: 0FT44ZZ Resection of Gallbladder, Percutaneous Endoscopic Approach (ICD-10-PCS; principal; 2021-08-08 08:00)
PROC: 5A09357 Assistance with Respiratory Ventilation, Less than 24 Consecutive Hours, Continuous Positive Airway Pressure (ICD-10-PCS; 2021-08-09)
DX: K80.00 Calculus of gallbladder with acute cholecystitis without obstruction (principal); E78.5 Hyperlipidemia, unspecified; K42.9 Umbilical hernia without obstruction or gangrene; J45.909 Unspecified asthma, uncomplicated; I10 Essential (primary) hypertension; G47.30 Sleep apnea, unspecified; Z79.899 Other long term (current) drug therapy; Z87.891 Personal history of nicotine dependence
CPT/HCPCS: 36415; 74177; 76705; 80053; 81003; 82150; 83690; 85025; 85610; 85730; 86850; 86900; 86901; 88304; 93005; 96361; 96365; 96372; 96375; 96376; 99285

== ENCOUNTER → 2023-10-12 | Outpatient (CLI) | payer BC ==
[2023-10-12 15:58] VITALS: BP 137/87; PULSE 87; RESP 16; TEMP 98
--- NOTE | 2023-10-12 16:58 | P.SLEEP ---
History of Present Illness DATE: 10/12/2023 CONSULTATION/NEW PATIENT EVALUATION HISTORY OF PRESENT ILLNESS/SLEEP-WAKE EVALUATION: 58-year-old gentleman had be en evaluated in the sleep center for obstructive sleep apnea hypopnea syndrome. Patient has history of obstructive sleep apnea diagnosed in our sleep center around 2015. At that time patient was started on treatment with CPAP and I saw patient last time in the office on 04/28/2016. Patient continued to use his CPAP equipment all this year every night for the whole night. I checked his CPAP unit. Pressure is 8 cm of water. Usage is 95% of the nights, average 5.5 hours per night. Leak is 4 L/min which is in normal range. Apnea hypopnea index is 2.4 which is normal. Patient feels that the pressure is too low when he is starting to use machine during the night. SLEEP SCHEDULE: Usually sleep schedule for p.m. 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 FALLING ASLEEP: No problems with falling asleep. DURING SLEEP: No snoring with CPAP, no awakenings from sleep. No history of hypnogogical hallucinations, sleep paralysis, or cataplexy. DURING THE DAY/WAKE STATE: Patient does not complaints on excessive sleepiness. [place] sleepiness scale is 1. Patient does not take naps. PAST MEDICAL HISTORY: Hypertension, hyperlipidemia. PAST SURGICAL HISTORY: Cholecystectomy. MEDICATIONS: Please see below. SOCIAL HISTORY: Please see below. FAMILY HISTORY: Hypertension, asthma. REVIEW OF SYSTEMS: No snoring or awakenings from sleep while on CPAP. No fevers. No double vision. No recent chest pain. No shortness of breath. No abdominal pain. No bleeding episodes. No blood in urine. No seizure episodes. PHYSICAL EXAMINATION: GENERAL: A pleasant patient without any distress. VITAL SIGNS: Please see below, weight 245 pounds, BMI 36.1. HEENT: PERRLA, EOMI. Evaluation of oropharynx showed tongue protrudes midline, low position of soft palate Mallampati 3. NECK: Supple. No JVD. Thyroid is not palpable. 20 inches in circumference. LUNGS: Clear to percussion and to auscultation. Good air exchange. No wheezing or rhonchi. HEART: S1, S2 regular. No murmurs, gallops or rubs. ABDOMEN: Soft and nontender. Bowel sounds are present. No organomegaly appreciated. EXTREMITIES: No clubbing or cyanosis. MANAGER RETAIL SALES: Awake, alert, and oriented x3. Cranial nerves 2 to 7 intact. There is no fasciculation or atrophy noted. No focal deficits observed. ASSESSMENT: 1. Obstructive sleep apnea hypopnea syndrome for many years, patient continued to use CPAP equipment every night for the whole night, normal respiration on CPAP. Low position of soft palate Mallampati 3. 2. Obesity, BMI 36.1. 3. Hypertension. 4. Hyperlipidemia. 5 status post cholecystectomy. PLAN: 1. Patient will continue to use CPAP equipment every night for the whole night. I changed regimen of CPAP unit to AutoPap with a range of the pressure 6 to 10 cm of H2O, changed ramp to start from 6 cm of water instead of 4 cm of water. 2. Prescription for all necessary CPAP supplies including mask tube filters. 3. Preferable position during sleep on the side. 4. No driving if patient feels any sleepiness. Patient is aware of civil and criminal liability for unsafe driving. 5. Sleep hygiene with regular sleep time for at least 7.5-8 hours. 6. Watching and losing weight. 7. Follow-up visit in 6 months. Thank you very much for referring this patient for consultation. Sincerely, Jg Sanders MD, PhD, FAASM. Diplomat of [place] [employer], Sleep Medicine Board by [place] [employer] [place] [employer] Vehicle Operator of [facility] [place] cc: Camacho Neves MD Past Medical History Past Medical History: Asthma, Hyperlipidemia, Hypertension, Sleep Apnea/CPAP/BIPAP History of Any Multi-Drug Resistant Organisms: None Reported Past Surgical History: No Surgical Hx Reported Additional Past Surgical History / Comment(s): Gall Bladder removal Past Anesthesia/Blood Transfusion Reactions: No Reported Reaction Past Psychological History: No Psychological Hx Reported Smoking Status: Former smoker Past Alcohol Use History: Occasional Past Drug Use History: None Reported - Past Family History Father Family Medical History: No Reported History Medications and Allergies Home Medications Medication Instructions Recorded Confirmed Type Atorvastatin [Lipitor] 20 mg PO DAILY@142908/06/21 10/12/23 History Cetirizine HCl [Zyrtec] 10 mg PO DAILY@142908/06/21 10/12/23 History Moexipril HCl [Univasc] 15 mg PO DAILY@1430 08/06/21 10/12/23 History hydroCHLOROthiazide 20 mg PO DAILY@1430 08/06/21 10/12/23 History Allergies Allergy/AdvReac Type Severity Reaction Status Date / Time No Known Allergies Allergy Unverified 08/06/21 14:09 Physical Exam Vitals: Vital Signs Temp Pulse Resp BP Pulse Ox 10/12/23 15:57 98 F 87 16 137/87 98 Intake and Output 10/12/23 10/12/23 10/12/23 06:59 14:59 22:59 Other: Weight 111.13 kg Sleep Note - Sleep Data ESS Total: 0 - Sleep Note Sleep Note: Temperature: 98 F Pulse Rate: 87 Respiratory Rate: 16 Blood Pressure: 137/87 SpO2: 98 Height: 5 ft 9 in Weight: 111.13 kg BMI: Neck Circumference: 20
== END ==
LOC: 3 N SLEEP 15:08
PROVIDERS: ATTEND Internal Medicine
DX: G47.33 Obstructive sleep apnea (adult) (pediatric) (principal); E66.9 Obesity, unspecified; I10 Essential (primary) hypertension; E78.5 Hyperlipidemia, unspecified; Z90.49 Acquired absence of other specified parts of digestive tract; Z98.890 Other specified postprocedural states; Z99.89 Dependence on other enabling machines and devices; Z68.36 Body mass index [BMI] 36.0-36.9, adult; Z87.891 Personal history of nicotine dependence; Z79.899 Other long term (current) drug therapy
CPT/HCPCS: 99211

== ENCOUNTER 2023-10-24 09:40 | Day surgery (SDC) | payer BC ==
[2023-10-24] MEDS ORDERED: LACTATED RINGERS 1,000 ML BAG ONE (11:13)
[2023-10-24] MEDS ORDERED: PROPOFOL 10 MG/ML 20 ML VIAL IV ONE (11:48)
--- NOTE | 2023-11-03 15:53 | PCN ---
PROCEDURE NOTE PREOPERATIVE DIAGNOSIS: Screening. POSTOPERATIVE DIAGNOSIS: Mild diverticulosis. PROCEDURE: Colonoscopy. ANESTHESIA: Sedation. SURGEON: Abigail. COMPLICATIONS: None. OPERATIVE PROCEDURE: The patient was brought and placed on the OR table in the left decubitus position. The patient was sedated per Anesthesia at that time. The Olympus colonoscope was inserted into the anus and passed under direct visualization to the base of the cecum. From that point, we slowly withdrew the scope, inspected all organs carefully. There were no neoplastic, inflammatory, or polypoid lesions seen throughout the cecum, ascending, transverse, descending, sigmoid, or rectum. There was moderate size diverticulosis. Digital rectal examination was normal. PLAN: 1. Resume diet. 2. Followup colonoscopy in 10 years. MMODL / IJN: [id number] /
== END 2023-10-24 12:40 ==
LOC: ORWHC2ENDO 09:40
PROVIDERS: ATTEND Surgery
DX: Z12.11 Encounter for screening for malignant neoplasm of colon (principal); K57.30 Diverticulosis of large intestine without perforation or abscess without bleeding; I10 Essential (primary) hypertension; E78.5 Hyperlipidemia, unspecified; G47.33 Obstructive sleep apnea (adult) (pediatric); Z79.899 Other long term (current) drug therapy
CPT/HCPCS: 45378

== ENCOUNTER → 2024-04-03 | Outpatient (CLI) | payer BC ==
[2024-04-03 14:52] VITALS: BP 148/91; PULSE 79; RESP 16; TEMP 98.2
--- NOTE | 2024-04-03 15:32 | P.PROGSL ---
Subjective DATE: 05/04/2024 FOLLOW UP VISIT. Patient with obstructive sleep apnea hypopnea syndrome return to sleep center for follow-up visit. Information from previous visit have been reviewed. Patient is using PAP equipment every night for the whole night, getting PAP supplies in time. The patient does not have significant problems with the mask, PAP unit and humidification. Machine has signed that motor life expectancy was exceeded. [place] sleepiness scale is 0, which is perfect. I checked information from PAP unit. PAP unit pressure 6-10, average 9.6 cm H2O. Usage is 92% for more then 4 hours, average 5.4 hours per night. Leak is perfect 2 l/m. Apnea Hypopnea Index is 0.9, which is normal. MEDICATIONS have been reviewed, please see below. During physical exam: GENERAL: A pleasant patient without any distress. VITAL SIGNS: Please see below, weight is 160.8 lbs. HEENT: PERRLA, EOMI.low position of soft palate, Mallapati 3. NECK: Supple. No JVD. LUNGS: Clear to percussion and to auscultation. Good air exchange. No wheezing or rhonchi. HEART: S1, S2 regular. ABDOMEN: Soft and nontender.[] EXTREMITIES: No clubbing or cyanosis. DATA INTEGRATION ANALYST: Awake, alert, and oriented x3. No focal deficit. Impressions: 1. Obstructive sleep apnea-hypopnea syndrome. Patient demonstrated great compliance with treatment, benefiting from treatment. 2. Obesity, BMI 38.0, patient increased his weight on 15 pounds comparing with previous visit. 3. Hypertension. 4. Hyperlipidemia. 5. Status post cholecystectomy. 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 Motor life expectancy of CPAP unit was exceeded, but CPAP unit is working well at the present time. Plan: 1. Continue using PAP equipment every night for the whole night. 2. Sleep hygiene with regular time in bed for at least 7.5-8 hours 3. PAP unit should stay lower then position of the head. 4. Advised patient to remove all remaining water from humidifier canister daily and make it dry after each usage. Refill canister with fresh distilled water before each usage. 5. Watching and losing weight. 6. Precautions related to driving. No driving if feel any sleepiness. 7. I will maintain prescription for PAP supplies including mask, tube, filters. 8. Follow up visit in 4 months or earlier if patient has any problems. Thank you very much for allowing me to participate in the management of your patient. Jg Sanders MD, PhD, FAASM. Diplomat of [place] [employer], Sleep Medicine Board by [place] Astro Technician of [facility] [place] Objective - Vital Signs Vital Signs: Vital Signs Temp 98.2 F 04/03/24 14:51 Pulse 79 04/03/24 14:51 Resp 16 04/03/24 14:51 BP 148/91 04/03/24 14:51 Pulse Ox 96 04/03/24 14:51 FiO2 Intake & Output 04/02/24 04/03/24 04/03/24 18:59 06:59 18:59 Weight 118.161 kg Home Medications: Home Medications Medication Instructions Recorded Confirmed Type Atorvastatin [Lipitor] 20 mg PO DAILY 08/06/21 04/03/24 History Cetirizine HCl [Zyrtec] 10 mg PO DAILY@1430 08/06/21 10/12/23 History Moexipril HCl [Univasc] 30 mg PO DAILY@1430 08/06/21 04/03/24 History hydroCHLOROthiazide 25 mg PO DAILY 08/06/21 04/03/24 History
== END ==
LOC: 3 N SLEEP 14:25
PROVIDERS: ATTEND Internal Medicine
DX: G47.33 Obstructive sleep apnea (adult) (pediatric) (principal); E66.9 Obesity, unspecified; I10 Essential (primary) hypertension; E78.5 Hyperlipidemia, unspecified; Z90.49 Acquired absence of other specified parts of digestive tract; Z68.38 Body mass index [BMI] 38.0-38.9, adult
CPT/HCPCS: 99212

== ENCOUNTER → 2024-08-22 | Outpatient (CLI) | payer BC ==
[2024-08-22 13:14] VITALS: BP 146/88; PULSE 72; RESP 18; TEMP 97.9
--- NOTE | 2024-08-22 13:44 | P.PROGSL ---
Subjective DATE: 08/22/2024 FOLLOW UP VISIT. Patient with obstructive sleep apnea hypopnea syndrome return to sleep center for follow-up visit. Information from previous visit have been reviewed. Patient is using PAP equipment every night for the whole night, getting PAP supplies in time. CPAP unit is old, recently is started stop working during the night. [place] sleepiness scale is 0. I checked information from PAP unit. PAP unit pressure 6-10, average 9.1 cm H2O. Usage is 90% for more then 4 hours, average 4 hours per night. Leak is 12 l/m, which is in acceptable range. Apnea Hypopnea Index is 4.0, which is normal. MEDICATIONS have been reviewed, please see below. During physical exam: GENERAL: A pleasant patient without any distress. VITAL SIGNS: Please see below, weight is 254.7 lbs. HEENT: PERRLA, EOMI.low position of soft palate, Mallapati 3 . NECK: Supple. No JVD. LUNGS: Clear to percussion and to auscultation. Good air exchange. No wheezing or rhonchi. HEART: S1, S2 regular. ABDOMEN: Soft and nontender. Obese EXTREMITIES: No clubbing or cyanosis. WORKFORCE MANAGEMENT CONSULTANT: Awake, alert, and oriented x3. No focal deficit. Impressions: 1. Obstructive sleep apnea-hypopnea syndrome. Patient demonstrated good compliance with treatment, benefiting from treatment. CPAP unit is old, motor life expectancy was exceeded, CPAP unit stopped working sometimes. 2. Obesity, BMI 37.1, patient lost 6 pounds since previous visit. 3. Hypertension. 4. Hyperlipidemia. 5. Status post cholecystectomy. 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 Plan: 1. Continue using PAP equipment every night for the whole night. Prescription to replace CPAP into as soon as possible. 2. Sleep hygiene with regular time in bed for at least 7.5-8 hours 3. PAP unit should stay lower then position of the head. 4. Advised patient to remove all remaining water from humidifier canister daily and make it dry after each usage. Refill canister with fresh distilled water before each usage. 5. Watching weight. 6. Precautions related to driving. No driving if feel any sleepiness. 7. I will maintain prescription for PAP supplies including mask, tube, filters. 8. Follow up visit in 1-3 months after patient will get new CPAP unit. Thank you very much for allowing me to participate in the management of your patient. Jg Sanders MD, PhD, FAASM. Diplomat of [place] [employer], Sleep Medicine Board by [place] Electronics Installer of [facility] [place] Objective - Vital Signs Vital Signs: Vital Signs Temp 97.9 F 08/22/24 13:13 Pulse 72 08/22/24 13:13 Resp 18 08/22/24 13:13 BP 146/88 08/22/24 13:13 Pulse Ox 98 08/22/24 13:13 FiO2 Intake & Output 08/21/24 08/22/24 08/22/24 18:59 06:59 18:59 Weight 115.468 kg Home Medications: Home Medications Medication Instructions Recorded Confirmed Type Atorvastatin [Lipitor] 20 mg PO DAILY 08/06/21 04/03/24 History Cetirizine HCl [Zyrtec] 10 mg PO DAILY@1430 08/06/21 10/12/23 History Moexipril HCl [Univasc] 30 mg PO DAILY@1430 08/06/21 04/03/24 History hydroCHLOROthiazide 25 mg PO DAILY 08/06/21 04/03/24 History
== END ==
LOC: 3 N SLEEP 13:00
PROVIDERS: ATTEND Internal Medicine
DX: G47.33 Obstructive sleep apnea (adult) (pediatric) (principal); E66.9 Obesity, unspecified; I10 Essential (primary) hypertension; E78.5 Hyperlipidemia, unspecified; Z90.89 Acquired absence of other organs; Z68.37 Body mass index [BMI] 37.0-37.9, adult; Z99.89 Dependence on other enabling machines and devices
CPT/HCPCS: 99212